=== PATIENT | female | born 1950 | race Caucasian/White ===

== ENCOUNTER 2017-01-18 16:42 | Emergency (ER) | payer MEDICARE, BC ==
[2017-01-18 16:47] VITALS: TEMP 97.5
[2017-01-18 17:28] VITALS: PULSE 100; RESP 18
--- NOTE | 2017-01-18 17:37 | ED ---
General Adult HPI - General Chief complaint: Recheck/Abnormal Lab/Rx Stated complaint: High Blood Pressure Time Seen by Provider: 01/18/17 17:23 Source: patient, RN notes reviewed, old records reviewed Mode of arrival: ambulatory Limitations: no limitations - History of Present Illness Initial comments: this is a 66-year-old female presenting to the emergency Department chief complaint of elevated blood pressure and she was at her optometry appointment today. Patient reports that when she was at her appointment is for her blood pressure was 217/112. Patient was told to come directly to the emergency department. She denies any chest pain, shortness of breath or headache. She reports that she does have some poor vision but that is chronic. Denies any new changes. Patient states that she does not see a primary care doctor regularly. She has never been diagnosed with hypertension. Patient states that she does not take any medications regularly. Patient denies any recent fever, chills, shortness of breath, chest pain, back pain, abdominal pain, nausea vomiting, numbness or tingling, dysuria or hematuria, constipation or diarrhea, headaches or visual changes, or any other current symptoms - Related Data Previous Rx's Medication Instructions Recorded Acetaminophen-Codeine 300-30mg 1 each PO Q4H PRN #20 tablet 02/08/14 [Tylenol w/codeine #3] Ibuprofen [Motrin] 600 mg PO Q8HR PRN #30 tab 02/08/14 amLODIPine [Norvasc] 2.5 mg PO DAILY #15 tablet 01/18/17 Allergies Allergy/AdvReac Type Severity Reaction Status Date / Time Penicillins Allergy Unknown Verified 01/18/17 16:46 Review of Systems ROS Statement: Those systems with pertinent positive or pertinent negative responses have been documented in the HPI. ROS Other: All systems not noted in ROS Statement are negative. Past Medical History Past Medical History: Asthma History of Any Multi-Drug Resistant Organisms: None Reported Past Surgical History: No Surgical Hx Reported Past Psychological History: No Psychological Hx Reported Smoking Status: Never smoker Past Alcohol Use History: None Reported Past Drug Use History: None Reported General Exam - General Exam Comments Initial Comments: 66-year-old female. Patient does not appear to be in any acute distress. Limitations: no limitations General appearance: alert, in no apparent distress Head exam: Present: atraumatic, normocephalic, normal inspection Eye exam: Present: normal appearance, PERRL, EOMI. Absent: scleral icterus, conjunctival injection, periorbital swelling ENT exam: Present: normal exam, mucous membranes moist Neck exam: Present: normal inspection. Absent: tenderness, meningismus, lymphadenopathy Respiratory exam: Present: normal lung sounds bilaterally. Absent: respiratory distress, wheezes, rales, rhonchi, stridor Cardiovascular Exam: Present: regular rate, normal rhythm, normal heart sounds. Absent: systolic murmur, diastolic murmur, rubs, gallop, clicks GI/Abdominal exam: Present: soft, normal bowel sounds. Absent: distended, tenderness, guarding, rebound, rigid Extremities exam: Present: normal inspection Back exam: Present: normal inspection Neurological exam: Present: alert, oriented X3, CN II-XII intact Psychiatric exam: Present: normal affect, normal mood Course Vital Signs 01/18/17 01/18/17 16:44 17:27 Temperature 97.5 F L Pulse Rate 104 H 100 Respiratory 20 18 Rate Blood Pressure 200/84 177/81 O2 Sat by Pulse 97 95 Oximetry EKG Findings - EKG Comments: EKG Findings:: EKG shows normal sinus rhythm. Ventricular rate of 90 beats per. NH interval 154 ms. QRS duration 80 ms. QTC 372/455 ms. No evidence of ST elevation or T-wave inversion. No evidence of atrial or ventricular arrhythmias. Medical Decision Making - Medical Decision Making physical 65-year-old feel presents emergency room chief complaint of concern for high blood pressure. Patient was seen in the contrast office for annual checkup, and blood pressure was noted be 217/100. Patient reports she does not have any history of high blood pressure. Denies any symptoms include chest pain or shortness of breath. Patient labwork was reviewed. Patient CBC CMP and UA reviewed and unremarkable. EKG was reviewed and normal. Chest x-ray also showed no evidence of [place]. Patient blood pressure was rechecked and then was 195/87. Patient was given IV labetalol prior to discharge. Discussed that with the patient on a low-dose of hydrochlorothiazide. She does check her blood pressure periodically throughout the next 3 days and follow-up with primary care provider. Patient agrees to treatment plan will comply. Return primary's were discussed. - Lab Data Result diagrams: 01/18/17 18:00 01/18/17 18:00 Lab Results 01/18/17 01/18/17 Range/Units 18:00 18:00 WBC 9.0 (3.8-10.6) k/uL RBC 4.61 (3.80-5.40) m/uL Hgb 14.4 (11.4-16.0) gm/dL Hct 44.2 (34.0-46.0) % MCV 95.8 (80.0-100.0) fL MCH 31.1 (25.0-35.0) pg MCHC 32.5 (31.0-37.0) g/dL RDW 12.8 (11.5-15.5) % Plt Count 370 (150-450) k/uL Neutrophils % 64 % Lymphocytes % 24 % Monocytes % 5 % Eosinophils % 3 % Basophils % 1 % Neutrophils # 5.8 (1.3-7.7) k/uL Lymphocytes # 2.2 (1.0-4.8) k/uL Monocytes # 0.5 (0-1.0) k/uL Eosinophils # 0.3 (0-0.7) k/uL Basophils # 0.1 (0-0.2) k/uL Sodium 139 (137-145) mmol/L Potassium 3.9 (3.5-5.1) mmol/L Chloride 104 (98-107) mmol/L Carbon Dioxide 25 (22-30) mmol/L Anion Gap 10 mmol/L BUN 13 (7-17) mg/dL Creatinine 0.60 (0.52-1.04) mg/dL Est GFR (MDRD) Af Amer >60 (>60 ml/min/1.73 sqM) Est GFR (MDRD) Non-Af >60 (>60 ml/min/1.73 sqM) Glucose 123 H (74-99) mg/dL Calcium 9.3 (8.4-10.2) mg/dL Total Bilirubin 0.2 (0.2-1.3) mg/dL AST 15 (14-36) U/L ALT 27 (9-52) U/L Alkaline Phosphatase 64 (38-126) U/L Total Protein 6.7 (6.3-8.2) g/dL Albumin 3.8 (3.5-5.0) g/dL - Radiology Data Radiology results: report reviewed Chest x-ray shows no evidence of any acute pulmonary disease. Disposition Clinical Impression: Hypertension Disposition: HOME SELF-CARE Condition: Good Instructions: Hypertension (ED) Additional Instructions: Patient is advised to follow-up with primary care provider within the next week. Patient to take her blood pressure periodically throughout the day and record the numbers for accurate follow-up with her primary care provider. Return to emergency department if there is any alarming signs or symptoms including chest pain, severe headache. Prescriptions: amLODIPine [Norvasc] 2.5 mg PO DAILY #15 tablet Referrals: Pastora Knapp DO [Primary Care Provider] - 1-2 days Time of Disposition: 18:55
[2017-01-18 18:15] LABS: Basophils # (A) 0.1 k/uL (0-0.2); Basophils % (A) 1 %; CH 30.7; CHCM 32.2; Eosinophils # (A) 0.3 k/uL (0-0.7); Eosinophils % (A) 3 %; HCT 44.2 % (34.0-46.0); HGB 14.4 gm/dL (11.4-16.0); Luc # (Auto) 0.21; Luc % (Auto) 2; Lymphocytes # (A) 2.2 k/uL (1.0-4.8); Lymphocytes % (A) 24 %; MCH 31.1 pg (25.0-35.0); MCHC 32.5 g/dL (31.0-37.0); MCV 95.8 fL (80.0-100.0); Mean Platelet Volume 6.7; Monocytes # (A) 0.5 k/uL (0-1.0); Monocytes % (A) 5 %; Neutrophils # (A) 5.8 k/uL (1.3-7.7); Neutrophils % (A) 64 %; RBC 4.61 m/uL (3.80-5.40); RDW 12.8 % (11.5-15.5); WBC (Perox) 9.43
--- NOTE | 2017-01-18 18:20 | XR ---
EXAMINATION TYPE: XR chest 2V DATE OF EXAM: 01/18/2017 COMPARISON: NONE HISTORY: Shortness of breath TECHNIQUE: Frontal and lateral views of the chest are obtained. FINDINGS: Scattered senescent parenchymal changes noted. Hyperinflation compatible with COPD. No evidence for infiltrate. No evidence for atelectasis. Heart size is stable. Mediastinal structures are stable and grossly unremarkable. No evidence for hilar prominence. Degenerative changes dorsal spine. IMPRESSION: 1. No evidence for acute pulmonary disease.
[2017-01-18 18:26] LABS: ALT 27 U/L (9-52); AST 15 U/L (14-36); Alkaline Phosphatase 64 U/L (38-126); Anion Gap 10 mmol/L; Blood Urea Nitrogen 13 mg/dL (7-17); Calcium 9.3 mg/dL (8.4-10.2); Carbon Dioxide 25 mmol/L (22-30); Chloride 104 mmol/L (98-107); Glucose 123 mg/dL (74-99); Non-African American GFR(MDRD) >60 (>60 ml/min/1.73 sqM); Potassium 3.9 mmol/L (3.5-5.1); Sodium 139 mmol/L (137-145); Total Bilirubin 0.2 mg/dL (0.2-1.3); Total Protein 6.7 g/dL (6.3-8.2)
[2017-01-18] MEDS ORDERED: LABETALOL 5 MG/ML VIAL MDV IVP STA (18:49)
[2017-01-18 18:55] LABS: Appearance,Urine Clear (Clear); Bilirubin,Urine Negative (Negative); Glucose,Urine (UA) Negative (Negative); Ketones,Urine Negative (Negative); Leukocyte Esterase,Urine Negative (Negative); Nitrite,Urine Negative (Negative); PH, Urine 5.5 (5.0-8.0); Protein,Urine Negative (Negative); Specific Gravity,Urine 1.011 (1.001-1.035); UA Billing (MACRO vs. MICRO) CHEM; Urobilinogen,Urine <2.0 mg/dL (<2.0)
[2017-01-18] MEDS ORDERED: amLODIPine 5 MG TAB PO STA (19:01)
[2017-01-18] MEDS ORDERED: hydrALAZINE HCL 25 MG TAB PO STA (19:50)
[2017-01-18 20:04] VITALS: BP 184/87
== END 2017-01-18 20:04 | disposition home or self-care (01) ==
LOC: EC 16:42
DX: I10 Essential (primary) hypertension (principal); Z88.0 Allergy status to penicillin
CPT/HCPCS: 36415; 71020; 80053; 81003; 85025; 93005; 99284